=== PATIENT | female | born 2000 | race Caucasian/White ===

== ENCOUNTER 2018-04-29 00:11 | Emergency (ER) | payer OTHER, SELFPAY ==
[2018-04-29 00:13] VITALS: BP 125/85; PULSE 102; RESP 14; TEMP 36.9; O2SAT 100
--- NOTE | 2018-04-29 00:37 | CT_ITS ---
STUDY: CT ABDOMEN AND PELVIS WITH CONTRAST REASON FOR EXAM: Female, 18 years old. History of non-Hodgkin's lymphoma, presenting with abdominal pain, nausea and vomiting RADIATION DOSAGE (If Supplied By Facility): CTDIvol = ( 9.33 ) mGy, DLP = ( 267.26 ) mGycm TECHNIQUE: Transaxial images were obtained from the dome of the diaphragm to the symphysis pubis without oral contrast. 75ML ml of Isovue 370 contrast was administered. Sagittal and coronal images were reconstructed. Individualized dose optimization techniques were used for this CT. COMPARISON: None. FINDINGS: The visualized lung bases are unremarkable. The visualized portions of the heart are within normal limits. Normal liver. Normal gallbladder and extrahepatic biliary system. Normal spleen. Normal pancreas. Normal bilateral adrenal glands. Hypoattenuated lesion within the midpole of the right kidney measuring near water density. Normal left kidney. Normal visualized stomach. Normal small intestine. Normal colon. The appendix is visualized and appears normal. Normal abdominal aorta. Normal inferior vena cava. Normal retroperitoneum. Small amount of free fluid tracking into the pelvis. Normal urinary bladder. Uterus and bilateral adnexa are unremarkable. Normal abdominal wall. Normal osseous structures. CT/Abdomen/Pelvis W IV Cont ONLY IMPRESSION: 1. Small amount of free pelvic fluid, likely physiologic in nature, with no definitive evidence of an acute intra-abdominal abnormality. 2. Simple appearing mid right renal cyst. Electronically Signed: Kevin Phillips MD at 1:40 EDT Tel , Service support ,
[2018-04-29 00:40] LABS: Absolute Lymphocyte Count 1.36 X10^3/ul (0.83-4.51); Basophil# 0.02 X10^3/uL; Basophil% 0.2 % (0-1); Eosinophil# 0.07 X10^3/uL; Eosinophils% 0.7 % (0-5); Hematocrit 41.5 % (37-47); Hemoglobin 13.7 g/dl (12.0-15.0); Lymphocyte # 1.36 X10^3/ul (4.0); Lymphocyte % 13.3 % (19-41); Mean Corpuscular Hgb 28.8 pg (27.0-32.0); Mean Corpuscular Volume 87.2 fL (81-99); Mean Platelet Vol. 10.2 fl (6.2-12.0); Monocyte# 0.78 X10^3/uL; Monocyte% 7.6 % (0-10); Neutrophil # 7.99 X10^3/uL (2.7-7.7); Platelet Count 246 K/mm3 (150-450); RBC Distribution Width SD 38.1 fl (35.1-43.9); Red Blood Count 4.76 M/mm3 (4.2-5.4); White Blood Count 10.2 K/mm3 (4.4-11.0)
[2018-04-29 00:41] LABS: POSITIVE COUNT NO; POSITIVE DIFFERENTIAL NO; POSITIVE MORPHOLOGY NO
[2018-04-29] MEDS: Ondansetron 4 MG/2 ML Vial IV (00:46)
[2018-04-29] MEDS: 0.9% Normal Saline 1,000 ML 1000 ML IV (00:46)
[2018-04-29] MEDS: Morphine 4 MG/ML Syringe IV (00:46)
[2018-04-29 00:52] LABS: AST(SGOT) 14 U/L (15-37); Alanine Aminotransfer ALT/SGPT 18 U/L (13-56); Albumin, Serum 4.3 g/dL (3.2-5.0); Alkaline Phosphatase 55 U/L (45-117); Anion Gap 10 (5-15); BUN 11 mg/dL (7-18); BUN/Creat Ratio 15.3 RATIO (10-20); Bilirubin, Direct 0.17 mg/dL (0.00-0.30); Calcium,Total 9.4 mg/dL (8.5-10.1); Chloride 103 mmol/L (98-107); Creatinine, Serum 0.72 mg/dL (0.55-1.02); EST Glomerular Filtration Rate 110 mL/min (>60); Est Glom Filt Rate - Afr Amer 133 mL/min (>60); Estimated Creatinine Clearance 101.13 ml/min; Globulin 4.1 g/dL (2.2-4.2); Glucose 103 mg/dL (74-106); Lipase 194 U/L (73-393); Potassium 3.4 mmol/L (3.5-5.1); Protein, Total 8.4 g/dL (6.4-8.2); Sodium Level 139 mmol/L (136-145)
[2018-04-29 00:58] LABS: Pregnancy, Serum, hCG Quali. NEGATIVE Negative (0-9 Nonpreg)
[2018-04-29] MEDS: proMETHazine 25 MG/ML Syringe 12.5 MG IV (02:08)
[2018-04-29 02:33] LABS: Bacteria 0 SEEN /hpf (None Seen); Mucous, Urine 0 SEEN /hpf (<or=2+); Red Blood Cells-Urine 0 SEEN /hpf (0-5); White Blood Cells 0 SEEN /hpf (0-5)
[2018-04-29 02:34] LABS: Color, Urine Yellow (Yellow); Glucose, Dipstick Normal (Normal); Ketone-Dipstick 50 mg/dl (Negative); Leukocyte Esterase-Dipstick Negative /ul (Negative); Nitrite-Dipstick Negative (Negative); Occult Blood-Urine 50 /ul (Negative); Protein-Dipstick Negative (Negative); Urine Bilirubin Dipstick Negative (Negative); Urine Clarity Clear (Clear); Urine Urobilinogen Normal (Normal); Urine pH 6.5 (5.0 - 8.0)
[2018-04-29 02:47] LABS: Squamous Epithelial Cells - UA 0-5 SEEN /hpf (5-10)
--- NOTE | 2018-04-29 03:06 | ED.DCSUM_ITS ---
- ER Visit Summary Date of Service: 04/29/18 Chief Complaint: Abdominal pain History of Present Illness: The patient is a 18 F who presents with abdominal pain. It began acutely about 3 hours prior to presentation. It is sharp. Is currently 5 out of 10 but it has been 7 out of 10 at its worst. It is located in the center of the abdomen. It is worse with palpation. She has had 2 episodes of nonbloody nonbilious emesis. She denies diarrhea. She denies urinary symptoms. She is currently on her menstrual period. Physical Examination: Afebrile initial heart rate 102 vitals otherwise unremarkable Moist mucous membranes Heart regular rhythm tachycardia Lungs are clear Abdomen soft nondistended she does have some periumbilical tenderness without guarding without rebound Alert Test Results: CBC BMP unremarkable. Hepatic function lipase normal. Urinalysis normal. negative. CT the abdomen and pelvis shows a small amount of free pelvic fluid and a simple right-sided renal cyst no acute process. Emergency Department Course and Treatment: Patient was initially treated with morphine and Zofran. She had improvement of her pain but did continue to vomit. She was given Phenergan. On reevaluation she is resting comfortably her workup is unremarkable. I see no evidence of acute surgical process or bacterial infection requiring antibiotics. I suspect this is related to a viral gastroenteritis. She was given a prescription for Phenergan. She understands to return for new or worsening symptoms. She will follow-up as an outpatient as needed and was discharged home. Treatment Plan: [] Disposition: Discharge Impression: Abdominal pain Vomiting This note was generated with [employer]'s dictation software. It may contain incorrect words, spelling, and punctuation that were not noted in review of the chart prior to signing ED Disposition - Plan for ED Patient: Chief Complaint: Abd Pain Referrals: Care Physician,No Primary [Primary Care Provider] -
--- NOTE | 2018-04-29 03:06 | ED.DEP ---
ED Disposition - Plan for ED Patient: Chief Complaint: Abd Pain Instructions: ED Abdominal Pain Unkn Cause, ED Nausea Vomiting Referrals: Care Physician,No Primary [Primary Care Provider] - Psaha Hugo MD [NON-STAFF] -
[2018-04-29 03:24] VITALS: BP 102/61; PULSE 95; RESP 15; O2SAT 98
== END 2018-04-29 03:25 | disposition home or self-care (01) ==
LOC: ED 00:41
PROVIDERS: Emergency Provider Emergency Medicine
DX: R10.9 Unspecified abdominal pain (principal); R11.2 Nausea with vomiting, unspecified; J34.89 Other specified disorders of nose and nasal sinuses; Z85.71 Personal history of Hodgkin lymphoma
CPT/HCPCS: 74177; 80048; 80076; 81001; 83690; 84703; 85025; 96361; 96374; 96375; 99283; J7030; Q9967; A4216; J2405